=== PATIENT | female | born 2000 | race Caucasian/White ===

== ENCOUNTER 2019-12-09 22:20 | Emergency (ER) | payer MEDICAID, SELFPAY ==
[2019-12-09 22:21] VITALS: BP 142/87; PULSE 96; RESP 18; TEMP 36.4; O2SAT 98; BMI 49.1
--- NOTE | 2019-12-09 22:42 | ED.DCSUM_ITS ---
History of Present Illness Chief Complaint: General Illness Informant: Patient Narrative: 19-year-old female with no past medical history presents with concern for lower abdominal pain. States it began over the past 2 to 3 days. Describes it is intermittent and aching. Bilateral lower abdomen. No relieving or worsening factors. States that she is currently on her period. States that she does not have cramps of this nature before in the past. Denies any nausea, vomiting, diarrhea, constipation, urinary symptoms, vaginal discharge. Past Medical History - Allergies and Home Meds Allergies/Adverse Reactions: Allergies No Known Allergies Allergy (Verified 12/09/19 22:23) Primary Care Physician: NOT,DEFINED [NON-STAFF] - Past Medical History: None Surgical History: tonsillectomy Lives: With Family Smoking Status: Never smoker Alcohol: None Drugs: None Review of Systems General: Denies: Chills, Fever, Sweats Eyes: Denies: Visual changes - bilaterally, Diplopia ENT: Denies: Rhinorrhea, Sore throat Cardiovascular: Denies: Chest pain, Palpitations Respiratory: Denies: Dyspnea, Cough, Dyspnea on exertion Gastrointestinal: Reports: Abdominal pain. Denies: Nausea, Vomiting, Diarrhea, Melena, Hematochezia Genitourinary: Denies: Dysuria, Hematuria, Frequency Musculoskeletal: Denies: Back pain, Extremity Pain Skin: Denies: Rash, Wounds Neurological: Denies: Headache, Weakness, Numbness Physical Exam Vital Signs/Narrative: Vital Signs Temp Pulse Resp BP Pulse Ox 12/09/19 22:21 97.6 F L 96 18 142/87 H 98 Inital Vital Signs reviewed: Yes General: Well nourished, Well developed, No Acute Distress Head: Normocephalic, Atraumatic Eyes: Perrl, EOMI ENT: Moist mucous membranes, No rhinorrhea Neck: Supple, Nontender Cardiovascular: Regular rate, Regular rhythm, No murmurs Respiratory: No distress, CTA bilaterally, Chest nontender Abdomen: Soft, Nondistended, Normal bowel sounds, - - Tenderness to palpation in the bilateral lower abdomen. Difficult exam given the patient's body habitus. No rebound or guarding. Back: Nontender, Normal Inspection Extremities: Nontender, No edema Skin: Normal color, No rash Neurological: Alert, Oriented x3, Cranial nerves II-XII grossly intact, Normal Strength, Normal Sensation Psychological: Normal affect, Normal Mood Diagnostic/Tx/Re-eval Clinical Impression(s) from Imaging Studies Abdomen/Pelvis CT 12/09/19 23:50 IMPRESSION: 1. No free fluid or acute abdominal disease identified. Normal appendix. 2. Mild hepatosplenomegaly. 3. Gastric food contents with contracted gallbladder. Individualized dose optimization techniques were used for this CT. at 0118 Reported and signed by: Saji Noe MD Electronically Signed: Saji Noe, at 1:17 EDT Tel , Service support , Laboratory Data 12/09/19 12/09/19 12/09/19 22:45 22:45 22:50 WBC 8.8 RBC 4.86 Hgb 13.1 Hct 40.8 MCV 84.0 MCH 27.0 MCHC 32.1 RDW Std Deviation 39.8 RDW Coeff of Mallory 13.0 Plt Count 231 MPV 10.6 Immature Gran % (Auto) 0.200 Neut % (Auto) 62.9 Lymph % (Auto) 26.2 [place] % (Auto) 7.5 Eos % (Auto) 3.0 Baso % (Auto) 0.2 Absolute Neuts (auto) 5.5 Absolute Lymphs (auto) 2.29 Nucleated RBC % 0 Sodium 142 Potassium 3.7 Chloride 111 H Carbon Dioxide 29.0 Anion Gap 2 L BUN 11 Creatinine 0.86 Estim Creat Clear Calc 93.11 Est GFR (MDRD) Af Amer 108 Est GFR (MDRD) Non-Af 89 BUN/Creatinine Ratio 12.8 Glucose 101 Calcium 8.5 Total Bilirubin 0.30 AST 9 L ALT 21 Alkaline Phosphatase 81 Total Protein 6.9 Albumin 3.2 Globulin 3.7 Albumin/Globulin Ratio 0.9 Urine Color Urine Clarity Urine pH Ur Specific [place] Urine Protein Urine Glucose (UA) Urine Ketones Urine Occult Blood Urine Nitrite Urine Bilirubin Urine Urobilinogen Ur Leukocyte Esterase Urine RBC Urine WBC Ur Squamous Epith Cells Urine Bacteria Urine Mucus Urine Test Negative 12/09/19 22:50 WBC RBC Hgb Hct MCV MCH MCHC RDW Std Deviation RDW Coeff of Mallory Plt Count MPV Immature Gran % (Auto) Neut % (Auto) Lymph % (Auto) [place] % (Auto) Eos % (Auto) Baso % (Auto) Absolute Neuts (auto) Absolute Lymphs (auto) Nucleated RBC % Sodium Potassium Chloride Carbon Dioxide Anion Gap BUN Creatinine Estim Creat Clear Calc Est GFR (MDRD) Af Amer Est GFR (MDRD) Non-Af BUN/Creatinine Ratio Glucose Calcium Total Bilirubin AST ALT Alkaline Phosphatase Total Protein Albumin Globulin Albumin/Globulin Ratio Urine Color Yellow Urine Clarity Sl. Cloudy Urine pH 7.0 Ur Specific [place] 1.015 Urine Protein 30 H Urine Glucose (UA) Normal Urine Ketones Negative Urine Occult Blood 250 H Urine Nitrite Negative Urine Bilirubin Negative Urine Urobilinogen Normal Ur Leukocyte Esterase 500 H Urine RBC 10-25 SEEN Urine WBC 10-25 SEEN Ur Squamous Epith Cells 0-5 SEEN Urine Bacteria 1+ Urine Mucus 0 SEEN Urine Test - Medical Decision Making Patient appears well and nontoxic. Difficult exam given body habitus. Lab work within normal limits. CT negative. Patient was given Toradol as well as Zofran. Moderate stool burden on CT and patient be given MiraLAX. Urine contaminated will be sent for culture. Patient has no urinary symptoms at this time and is currently on her menstrual cycle. Given the bilateral nature of her pain ovarian etiology is less likely. Patient be given Zofran and MiraLAX for home and asked to return for new or worsening symptoms. Patient agreeable and discharged home in stable condition. Impression: 1. Abdominal cramping 2. Nausea ED Disposition - Plan for ED Patient: Disposition: Home or Assisted Living Instructions: ED Abdominal Pain Unkn Cause Fem Prescriptions: Polyethylene Glycol 3350 [Miralax] 17 gm PO DAILY #5 packet Prescription Printed Ondansetron [Zofran Odt] 4 mg PO Q8H PRN PRN #10 tab PRN Reason: Nausea Prescription Printed Referrals: Hai Clements [[facility]] - 1-2 Days if not improving
--- NOTE | 2019-12-09 23:00 | ED.RN ---
RN MEDICATED AT THIS TIME. UNABLE TO SIGN OFF MEDICATONS.
[2019-12-09 23:31] LABS: Color, Urine Yellow (Yellow); Glucose, Dipstick Normal (Normal); Internal QC Validated? YES +Cl - CLEAR BKGD; Ketone-Dipstick Negative (Negative); Leukocyte Esterase-Dipstick 500 /ul (Negative); Mucous, Urine 0 SEEN /hpf (<or=2+); Nitrite-Dipstick Negative (Negative); Occult Blood-Urine 250 /ul (Negative); Pregnancy, Urine Negative Negative; Protein-Dipstick 30 mg/dl (Negative); Specific Gravity, Urine 1.015 (1.002-1.030); Urine Bilirubin Dipstick Negative (Negative); Urine Clarity Sl. Cloudy (Clear); Urine Urobilinogen Normal (Normal)
[2019-12-09 23:35] LABS: Absolute Lymphocyte Count 2.29 X10^3/uL (0.83-4.51); Absolute Neutrophil Count 5.5 X10^3/uL (2.0-7.7); Basophil# 0.02 X10^3/uL; Basophil% 0.2 % (0-1); Eosinophil# 0.26 X10^3/uL; Hematocrit 40.8 % (37-47); Hemoglobin 13.1 g/dL (12.0-15.0); Lymphocyte # 2.29 X10^3/ul (4.0); Lymphocyte % 26.2 % (19-41); Mean Corp Hgb Conc 32.1 g/dL (32-36); Mean Platelet Vol. 10.6 fl (6.2-12.0); Monocyte# 0.66 X10^3/uL; Monocyte% 7.5 % (0-10); NRBC Flagged by Analyzer 0 % (0-5); Neutrophil % 62.9 % (47-70); Platelet Count 231 K/mm3 (150-450); RBC Distribution Width SD 39.8 fl (35.1-43.9); Red Blood Count 4.86 M/mm3 (4.2-5.4); White Blood Count 8.8 K/mm3 (4.4-11.0)
[2019-12-09 23:36] LABS: Bacteria 1+ /hpf (None Seen); Red Blood Cells-Urine 10-25 SEEN /hpf (0-5); Squamous Epithelial Cells - UA 0-5 SEEN /hpf (5-10); White Blood Cells 10-25 SEEN /hpf (0-5)
[2019-12-09 23:39] LABS: ALB/GLOB Ratio 0.9 RATIO (0.9-2.4); AST(SGOT) 9 U/L (15-37); Alanine Aminotransfer ALT/SGPT 21 U/L (13-56); Albumin, Serum 3.2 g/dL (3.2-5.0); Alkaline Phosphatase 81 U/L (45-117); Anion Gap 2 (5-15); BUN 11 mg/dL (7-18); BUN/Creat Ratio 12.8 RATIO (10-20); Calcium,Total 8.5 mg/dL (8.5-10.1); Chloride 111 mmol/L (98-107); Creatinine, Serum 0.86 mg/dL (0.55-1.02); EST Glomerular Filtration Rate 89 mL/min (>60); Est Glom Filt Rate - Afr Amer 108 mL/min (>60); Estimated Creatinine Clearance 93.11 ml/min; Globulin 3.7 g/dL (2.2-4.2); Glucose 101 mg/dL (74-106); Potassium 3.7 mmol/L (3.5-5.1); Protein, Total 6.9 g/dL (6.4-8.2); Sodium Level 142 mmol/L (136-145)
[2019-12-09] MEDS: Ketorolac 30 MG/ML Syringe 15 MG IV (23:46)
[2019-12-09] MEDS: Ondansetron 4 MG/2 ML Vial IV (23:47)
--- NOTE | 2019-12-09 23:50 | CT_ITS ---
HISTORY: BILATERAL LOWER ABDOMINAL PAIN. CURRENTLY ON PERIOD. LOWER GROIN PAIN. EXAMINATION: CT Abdomen And Pelvis W Contrast Injection TECHNIQUE: Helically acquired images were obtained of the abdomen and pelvis without oral or IV contrast as per renal stone protocol. A radiation dose optimization technique was used for this scan. IV Contrast dosage and agent: 100mL Isovue-370 contrast Oral contrast: None. COMPARISON: None FINDINGS: Large body habitus which limits diagnostic detail. The abdomen does not entirely fit within the [id number]. Lower thorax: No pleural effusion or pericardial effusion. Gastric food contents and gallbladder is contracted. No radiopaque gallstones and no biliary dilatation. Mild hepatis splenomegaly. The spleen measures 13.4 cm in length. No focal hepatic or splenic lesion. Normal pancreas. Normal bilateral kidneys. No hydronephrosis or pyelonephritis. The adrenal glands are not enlarged. Normal abdominal aorta and IVC. No ascites or retroperitoneal lymph node enlargement. GI tract: No obstruction. Retrocecal normal appendix. Pelvis: Anteverted uterus which is normal in size. Normal urinary bladder. No free fluid or lymph node enlargement. Bones: No acute osseous abnormality. Ventral abdominal wall: Small fat-containing umbilical hernia. CT/Abdomen/Pelvis W IV Cont ONLY IMPRESSION: 1. No free fluid or acute abdominal disease identified. Normal appendix. 2. Mild hepatosplenomegaly. 3. Gastric food contents with contracted gallbladder. Individualized dose optimization techniques were used for this CT. at 0118 Reported and signed by: Saji Noe MD Electronically Signed: Saji Noe, at 1:17 EDT Tel , Service support ,
[2019-12-10 00:50] VITALS: RESP 18
[2019-12-10 01:45] VITALS: BP 143/85; PULSE 74; RESP 15; O2SAT 98
--- NOTE | 2019-12-10 05:56 | ED.RN ---
Discharge instructions and prescriptions found in room. Placed in triage for apple picker.
== END 2019-12-10 01:53 | disposition home or self-care (01) ==
PROVIDERS: Emergency Provider Emergency Medicine
DX: R10.31 Right lower quadrant pain (principal); R10.32 Left lower quadrant pain; R11.0 Nausea
CPT/HCPCS: 74177; 80053; 81001; 81025; 85025; 87086; 87088; 96374; 96375; 99283; Q9967; A4216; J2405

== ENCOUNTER 2020-01-23 13:54 | Emergency (ER) | payer MEDICAID, SELFPAY ==
[2020-01-23 13:56] VITALS: BP 157/106; PULSE 90; RESP 18; TEMP 36.6; O2SAT 99; BMI 53.2
--- NOTE | 2020-01-23 14:04 | ED.VIS.GEN ---
History of Present Illness Chief Complaint: Female C/O Informant: Patient Narrative: The patient is an otherwise healthy 19-year-old female that presents to the emergency department due to concern for STD. Patient states that she had unprotected sex with someone who was positive for herpes. She has absolutely no symptoms. She denies any rash or pain. She denies any vaginal bleeding or discharge. She denies any urinary symptoms. She states he did test negative for gonorrhea and chlamydia. She presented hoping she can be tested for herpes. Patient is otherwise been in her normal state of health. She is on no daily medications. Prior similar symptoms: No Recent Illness/Hospitalization: No Past Medical History - Allergies and Home Meds Allergies/Adverse Reactions: Allergies No Known Allergies Allergy (Verified 01/23/20 13:58) Primary Care Physician: Care Physician,No Primary [Primary Care Provider] - Prior records reviewed: Yes Past Medical History: - - PCOS Surgical History: noncontributory, tonsillectomy Smoking Status: Never smoker Review of Systems General: Denies: Chills, Fever, Sweats Eyes: Denies: Visual changes - bilaterally, Diplopia ENT: Denies: Rhinorrhea, Sore throat Cardiovascular: Denies: Chest pain, Palpitations Respiratory: Denies: Dyspnea, Cough, Dyspnea on exertion Gastrointestinal: Denies: Abdominal pain, Nausea, Vomiting, Diarrhea, Melena, Hematochezia Genitourinary: Denies: Dysuria, Hematuria, Frequency Musculoskeletal: Denies: Back pain, Extremity Pain Skin: Denies: Rash, Wounds Neurological: Denies: Headache, Weakness, Numbness Physical Exam Vital Signs/Narrative: Vital Signs Temp Pulse Resp BP Pulse Ox 01/23/20 13:56 97.9 F 90 18 157/106 H 99 Inital Vital Signs reviewed: Yes General: Well nourished, Well developed, No Acute Distress Head: Normocephalic, Atraumatic Eyes: Perrl, EOMI ENT: Moist mucous membranes, No rhinorrhea Neck: Supple, Nontender Cardiovascular: Regular rate, Regular rhythm, No murmurs Respiratory: No distress, CTA bilaterally, Chest nontender Abdomen: Soft, Nontender, Nondistended, Normal bowel sounds Back: Nontender, Normal Inspection Extremities: Nontender, No edema Skin: Normal color, No rash Neurological: Alert, Oriented x3, Cranial nerves II-XII grossly intact, Normal Strength, Normal Sensation Psychological: Normal affect, Normal Mood Diagnostic/Tx/Re-eval - Medical Decision Making Urine was obtained for and gonorrhea and chlamydia. The patient is had no symptoms. A was negative. Supervised external genital exam was done with female nurse phonograph cartridge assembler. There is no evidence of lesions. I did school counselor the patient that there is no evidence of active disease therefore viral testing cannot be done at this time. I will write her prescription for valacyclovir in case she develops any lesions and she was counseled on when to use this. She is comfortable with this plan of care. Impression 1. STD testing ED Disposition - Plan for ED Patient: Instructions: ED Herpes Simplex Virus Type 2 Prescriptions: Valacyclovir HCl [Valacyclovir] 1,000 mg PO TID #21 tab Prescription Printed Referrals: Care Physician,No Primary [Primary Care Provider] - Additional Instructions: You have no evidence of herpes lesions. The enclosed instructions are just information about what to watch for and reasons to return.
[2020-01-23 14:24] LABS: Internal QC Validated? YES +Cl - CLEAR BKGD; Pregnancy, Urine Negative Negative
== END 2020-01-23 14:49 | disposition home or self-care (01) ==
LOC: ED 14:17
PROVIDERS: Emergency Provider Emergency Medicine
DX: Z20.2 Contact with and (suspected) exposure to infections with a predominantly sexual mode of transmission (principal)
CPT/HCPCS: 81025; 87491; 87591; 99281; 99285

== ENCOUNTER 2020-09-17 12:22 | Emergency (ER) | payer MEDICAID, SELFPAY ==
[2020-09-17 12:22] VITALS: BP 146/95; PULSE 85; RESP 18; TEMP 36.6; O2SAT 98; BMI 64.0
--- NOTE | 2020-09-17 12:35 | EDS_ITS ---
HPI History of Present Illness Chief Complaint: Abd Pain Informant: patient Narrative Narrative: 20-year-old female presents the emergency department with abdominal pain. She states that for the past 2 weeks she has had intermittent sharp pain on the right side of her abdomen that comes on intensely and then backs away after about a minute. She states she is left with a dull uncomfortable feeling. At times she feels it radiating towards her bladder. She wonders if she has a gallbladder problem. She notes that she has been eating normally. She notes normal bowel movements. No urinary symptoms. No prior abdominal surgeries. No radiation of the pain to the flank. No fevers. Today she got the symptoms at school and went to the bathroom and had a bout of emesis. She notes that she had a muffin proximally 4 and half hours prior to arrival. PFSH PFSH no medical history Home Medications valacyclovir 1,000 mg PO TID #21 tab 01/23/20 [Rx Last Taken Unknown] dicyclomine 20 mg PO TIDAC #20 capsule 09/17/20 [Rx Last Taken Unknown] ondansetron 4 mg PO Q6H PRN PRN #15 tab 09/17/20 [Rx Last Taken Unknown] Allergy/AdvReac Type Severity Reaction Status Date / Time amitriptyline Allergy Angioedema Verified 09/17/20 12:24 Surgical History (Updated 09/17/20 @ 12:[address] Deion Mireles DO) Hx of tonsillectomy Social History (Updated 09/17/20 @ 12:[address] Deion Mireles DO) Smoking Status: Current every day smoker tobacco type: e-cigarettes substance use type: does not use ROS ROS ED Constitutional Constitutional ED: Denies chills or weight loss Eyes Eyes: Denies change in vision or diplopia ENT ENT ED: Denies ear pain, rhinorrhea or sore throat Cardiovascular Cardiovascular: Denies chest pain, orthopnea, palpitations or racing heartbeat Respiratory/Chest Respiratory/Chest: Denies cough, dyspnea or orthopnea Gastrointestinal Gastrointestinal: Reports abdominal pain, nausea and vomiting; Denies constipation or diarrhea Genitourinary Genitourinary ED: Denies dysuria, hematuria or urinary frequency Musculoskeletal Musculoskeletal: Denies arthralgias or myalgias Integumentary Denies abscess or rash Neurologic Neurologic: Denies headache(s) or weakness Psychiatric Psychiatric: Denies anxiety, depression, suicidal ideation or suicidal thoughts Endocrine Endocrinology: Denies polydipsia, polyphagia or polyuria Allergic/Immunologic Allergic/Immunologic ED: Denies mouth swelling, tongue swelling or urticaria EXAM Physical Exam Const Vital Signs: 09/17/20 12:22 Temperature 97.9 F Temperature Source Temporal Pulse Rate 85 Respiratory Rate 18 Blood Pressure 146/95 H Blood Pressure Mean 112 Pulse Ox 98 Oxygen Delivery Method Room Air Positive well nourished, well developed and obese General Appearance ED: well developed Nutritional Appearance: obese HEENT Reports normocephalic, head/scalp atraumatic and moist mucous membranes Eyes PERRL and EOMs intact bilaterally Neck no lymphadenopathy, supple and no JVD Resp normal respiratory effort and clear to auscultation bilaterally Cardio regular rate, regular rhythm and no murmurs GI GI Narrative: Exam is limited by habitus Palpation: soft and tender RLQ Back/Spine no CVA tenderness and normal ROM Extremity normal to inspection General Extremety ED: Negative for edema General Extremity: Negative for edema Neuro oriented x3 and CN's II-XII intact bilaterally Sensorium / Orientation: alert Motor Exam: strength 5/5 throughout Psych mental status grossly normal Mood & Affect: Negative for depressed or tearful Skin no rashes or lesions noted and no wounds MDM MDM MDM Narrative Medical decision making narrative: Patient's white count returns at 8.2. Normal differential. CMP is normal lipase is normal. Urinalysis is contaminated but no overt infection. CT of the abdomen pelvis was obtained. No obvious gallstones. There was noted to be findings of enlarged lymph nodes in the right lower quadrant possible mesenteric adenitis. Patient received Bentyl and Zofran. I can write for the same at home. Follow-up with primary care if not improving return if worsening or concerns Lab Data Attestation: I reviewed the patient's lab results. Labs: Laboratory Results - last 24 hr 09/17/20 09/17/20 09/17/20 12:40 12:40 13:25 WBC 8.2 RBC 4.98 Hgb 13.4 Hct 41.1 MCV 82.5 MCH 26.9 L MCHC 32.6 RDW Std Deviation 38.3 RDW Coeff of [place]ory 12.7 Plt Count 227 MPV 10.2 Immature Gran % (Auto) 0.200 Neut % (Auto) 59.1 Lymph % (Auto) 29.9 [place] % (Auto) 6.9 Eos % (Auto) 3.5 Baso % (Auto) 0.4 Absolute Neuts (auto) 4.9 Absolute Lymphs (auto) 2.46 Nucleated RBC % 0 Sodium 142 Potassium 3.8 Chloride 108 H Carbon Dioxide 30.0 Anion Gap 4 L BUN 12 Creatinine 0.70 Estim Creat Clear Calc 113.43 Est GFR (MDRD) Af Amer 134 Est GFR (MDRD) Non-Af 111 BUN/Creatinine Ratio 17.1 Glucose 89 Calcium 8.7 Total Bilirubin 0.40 AST 16 ALT 25 Alkaline Phosphatase 90 Total Protein 6.8 Albumin 3.4 Globulin 3.4 Albumin/Globulin Ratio 1.0 Lipase 73 Urine Color Yellow Urine Clarity Sl. Cloudy Urine pH 5.0 Ur Specific [place] 1.020 Urine Protein Negative Urine Glucose (UA) Normal Urine Ketones Negative Urine Occult Blood Negative Urine Nitrite Negative Urine Bilirubin Negative Urine Urobilinogen Normal Ur Leukocyte Esterase 500 H Urine RBC 0 SEEN Urine WBC 5-10 SEEN Ur Squamous Epith Cells 10-25 SEEN Amorphous Sediment 1+ Urine Bacteria 0 SEEN Urine Mucus 0 SEEN Urine Test Negative Radiography Diagnostic Testing: Radiology Impression Abdomen/Pelvis CT 09/17/20 12:35 IMPRESSION: Small lymph nodes are seen in the mesenteric fat right lower quadrant suggests possible mesenteric adenitis. Borderline splenomegaly. Electronically Signed: Frank Alvarez MD at 14:08 EDT , Service support , Discharge Plan Triage Chief Complaint: Abd Pain ED Provider: Deion Mireles Dx/Rx/DC Orders Clinical Impression: Abdominal pain, Mesenteric adenitis Instructions: ED Adenitis, Mesenteric Prescriptions: New ondansetron [ondansetron] 4 MG tablet 4 mg PO Q6H PRN PRN (Reason: Nausea) Qty: 15 RF: 0 dicyclomine 10 MG capsule 20 mg PO TIDAC Qty: 20 RF: 0 No Action valacyclovir 1,000 MG tablet 1,000 mg PO TID Qty: 21 RF: 0 Primary Care Provider: Care Physician,No Primary Referrals: Care Physician,No Primary [Primary Care Provider] - Junior Adams NP, [facility] [Nurse Practitioner] - As Needed (for primary care) Activity Restrictions/Additional Instructions: Follow-up with primary care of choice or the referral above Return if worsening or concerns Disposition Disposition: Home, self care
--- NOTE | 2020-09-17 12:35 | CT_ITS ---
STUDY: CT ABDOMEN AND PELVIS WITH CONTRAST REASON FOR EXAM: Female, 20 years old. Several week history of right upper quadrant pain. RADIATION DOSAGE (If Supplied By Facility): CTDIvol = ( 34.56 ) mGy, DLP = ( 2040.52 ) mGycm TECHNIQUE: Transaxial images were obtained from the dome of the diaphragm to the symphysis pubis without oral contrast. IV 100mL Isovue-300 was administered. Sagittal and coronal images were reconstructed. Individualized dose optimization techniques were used for this CT. COMPARISON: Comparison is made with prior study of 12/10/2019. FINDINGS: The visualized lung bases are unremarkable. The visualized portions of the heart are within normal limits. Normal liver. Normal gallbladder and extrahepatic biliary system. There is mild splenomegaly. Normal pancreas. Normal bilateral adrenal glands. Normal right kidney. Normal left kidney. There is a retroaortic left renal vein. Normal visualized stomach. Normal small intestine. Normal colon. The appendix is visualized and appears normal. Normal abdominal aorta. Normal inferior vena cava. Normal retroperitoneum. Small lymph nodes are seen in the peritoneal fat in the right lower quadrant. This may represent mesenteric adenitis. Normal urinary bladder. Normal abdominal wall. Normal osseous structures. CT/Abdomen/Pelvis W IV Cont ONLY IMPRESSION: Small lymph nodes are seen in the mesenteric fat right lower quadrant suggests possible mesenteric adenitis. Borderline splenomegaly. Electronically Signed: Frank Alvarez MD at 14:08 EDT , Service support ,
[2020-09-17 13:00] LABS: Absolute Lymphocyte Count 2.46 X10^3/uL (0.83-4.51); Absolute Neutrophil Count 4.9 X10^3/uL (2.0-7.7); Basophil# 0.03 X10^3/uL; Basophil% 0.4 % (0-1); Eosinophil# 0.29 X10^3/uL; Eosinophils% 3.5 % (0-5); Hematocrit 41.1 % (37-47); Hemoglobin 13.4 g/dL (12.0-15.0); Lymphocyte # 2.46 X10^3/ul (0.83-4.51); Lymphocyte % 29.9 % (19-41); Mean Corp Hgb Conc 32.6 g/dL (32-36); Mean Corpuscular Hgb 26.9 pg (27.0-32.0); Mean Corpuscular Volume 82.5 fL (81-99); Mean Platelet Vol. 10.2 fl (6.2-12.0); Monocyte# 0.57 X10^3/uL; Monocyte% 6.9 % (0-10); NRBC Flagged by Analyzer 0 % (0-5); Neutrophil # 4.86 X10^3/uL (2.7-7.7); Neutrophil % 59.1 % (47-70); Platelet Count 227 K/mm3 (150-450); RBC Distribution Width CV 12.7 % (11.6-14.6); RBC Distribution Width SD 38.3 fl (35.1-43.9); Red Blood Count 4.98 M/mm3 (4.2-5.4); White Blood Count 8.2 K/mm3 (4.4-11.0)
[2020-09-17 13:09] LABS: AST(SGOT) 16 U/L (15-37); Alanine Aminotransfer ALT/SGPT 25 U/L (13-56); Albumin, Serum 3.4 g/dL (3.2-5.0); Alkaline Phosphatase 90 U/L (45-117); Anion Gap 4 (5-15); BUN 12 mg/dL (7-18); BUN/Creat Ratio 17.1 RATIO (10-20); Calcium,Total 8.7 mg/dL (8.5-10.1); Chloride 108 mmol/L (98-107); EST Glomerular Filtration Rate 111 mL/min (>60); Est Glom Filt Rate - Afr Amer 134 mL/min (>60); Estimated Creatinine Clearance 113.43 ml/min; Globulin 3.4 g/dL (2.2-4.2); Glucose 89 mg/dL (74-106); Lipase 73 U/L (73-393); Potassium 3.8 mmol/L (3.5-5.1); Protein, Total 6.8 g/dL (6.4-8.2); Sodium Level 142 mmol/L (136-145)
[2020-09-17 13:33] LABS: Bacteria 0 SEEN /hpf (None Seen); Mucous, Urine 0 SEEN /hpf (<or=2+); Red Blood Cells-Urine 0 SEEN /hpf (0-5)
[2020-09-17] MEDS: Dicyclomine 10 MG Capsule 20 MG PO (13:35)
[2020-09-17] MEDS: Ondansetron 4 MG/2 ML Vial IV (13:36)
[2020-09-17 13:38] LABS: Color, Urine Yellow (Yellow); Glucose, Dipstick Normal (Normal); Ketone-Dipstick Negative (Negative); Leukocyte Esterase-Dipstick 500 /ul (Negative); Nitrite-Dipstick Negative (Negative); Occult Blood-Urine Negative /ul (Negative); Protein-Dipstick Negative (Negative); Urine Bilirubin Dipstick Negative (Negative); Urine Clarity Sl. Cloudy (Clear); Urine Urobilinogen Normal (Normal)
[2020-09-17 13:43] LABS: Amorphous Sediment 1+; Squamous Epithelial Cells - UA 10-25 SEEN /hpf (5-10); White Blood Cells 5-10 SEEN /hpf (0-5)
[2020-09-17 13:44] LABS: Internal QC Validated? YES +Cl - CLEAR BKGD; Pregnancy, Urine Negative Negative
[2020-09-17 14:49] VITALS: BP 140/82; PULSE 84; RESP 20; O2SAT 98
[2020-09-17 14:50] VITALS: BP 140/82; PULSE 82; RESP 20; O2SAT 98
== END 2020-09-17 14:55 | disposition home or self-care (01) ==
PROVIDERS: Emergency Provider Emergency Medicine
DX: R10.9 Unspecified abdominal pain (principal); I88.0 Nonspecific mesenteric lymphadenitis; E66.9 Obesity, unspecified; F17.290 Nicotine dependence, other tobacco product, uncomplicated
CPT/HCPCS: 74177; 80053; 81001; 81025; 83690; 85025; 99284; Q9967; A4216; J2405